=== PATIENT | male | born 1965 | race Caucasian/White ===

== ENCOUNTER 2016-08-24 08:09 | Inpatient (IN) | payer MEDICARE, OTHER ==
--- NOTE | ~2016-08-24 | CO ---
Unit #: [id number] #: [id number] Patient: SOHAIL LUBIN [id number] [facility] [address] [facility]. [place], [place] [address] [id number] I MR#: [id number] NAME: SOHAIL LUBIN ROOM: 231 Age: 50 Sex: M Admission Date: 08/24/2016 : 1965 Attending Physician: Axel James M.D. Primary Care Physician: No Primary Care Physician CONSULTATION REPORT CHIEF COMPLAINT Left perirenal abscess, left flank pain. HISTORY OF PRESENT ILLNESS The patient is a 50-year-old male, who presented to the emergency room with an approximately one-month history of left flank pain, which has become substantially worse over the last three to four days. He had subjective fevers at home. He was afebrile on presentation, but it spiked to 102.6 here at [facility]. He has had nausea and vomiting. He denies gross hematuria or dysuria. He underwent a CT scan of the abdomen and pelvis which shows a 7 x 7 x 7 cm left lower pole lesion which is predominantly perirenal which is low density but with enhancing septations. Differential diagnosis includes most likely abscess versus neoplasm. PAST MEDICAL HISTORY 1. Hepatitis C. 2. Hypertension. 3. Hyperlipidemia. 4. Diabetes. 5. Anxiety. 6. Depression. 7. Gastroparesis. 8. Atrial fibrillation. PAST SURGICAL HISTORY 1. Hernia repair. 2. Left wrist surgery. 3. Bilateral eye surgery. 4. Upper endoscopy which shows esophageal varices. MEDICATIONS Documented in the chart. ALLERGIES Documented in the chart. SOCIAL HISTORY Prior history of prescription drug use difficulties. Denies history of tobacco or alcohol use. REVIEW OF SYSTEMS Positive for fever. Positive for left flank pain. Positive for nausea. Positive for vomiting. Unit #: [id number] #: [id number] Patient: SOHAIL LUBIN FAMILY HISTORY Noncontributory. PHYSICAL EXAMINATION VITAL SIGNS: T-max 102.6, T-current 98.8, blood pressure 149/63, pulse 107. GENERAL: He is a somewhat unkept white male in no acute distress. HEENT: Normocephalic and atraumatic. Extraocular movements are intact. NECK: Supple. No lymphadenopathy. CARDIOVASCULAR: Sinus tachycardia. Regular rhythm. ABDOMEN: Soft, nondistended but there is significant left CVA tenderness. EXTREMITIES: No clubbing, cyanosis, or edema. DIAGNOSTIC STUDIES LABORATORY: Creatinine 0.7. White blood cell count 11,000, platelet count 170,000. Urinalysis: Leukocyte esterase negative, nitrite negative, greater than 1000 glucose, 2-5 red blood cells, 5-10 white blood cells. Also significant on his labs, his glucose is 327. IMAGING: CT scan of the abdomen and pelvis without and with IV contrast reviewed personally as above. ASSESSMENT AND PLAN Left renal mass clinically consistent with a left perirenal abscess. We will check STAT coagulation studies. If he is coagulopathic, this will need to be corrected. He will need a drain placed by interventional radiology. We will continue IV antibiotics and follow his cultures. There is an unlikely possibility that this could be a neoplasm, but given his clinical presentation of an abscess even in this situation it needs to be drained due to the acute clinical situation. I discussed this and the risks, benefits, and alternatives with the patient. We will proceed today. Dictated by... Shorty Young M.D. COURTNEY/chari TD: 08/25/2016 09:13 JOB #: [id number] CONSULTATION REPORT Page 1 of 1 X Shorty Young MD X CONSULTATION REPORT
--- NOTE | ~2016-08-24 | DS ---
Unit #: [id number] #: [id number] Patient: SEAN LUBIN [id number] [address] [address] [id number] I MR#: [id number] NAME: SEAN LUBIN ROOM: 558 Age: 50 Sex: M Admission Date: 08/24/2016 : 1965 Discharge Date: 09/01/2016 Attending Physician: Axel James M.D. Primary Care Physician: No Primary Care Physician DISCHARGE SUMMARY NOTE: The patient has had a lengthy stay during this hospitalization. CONSULTATIONS DONE DURING HOSPITALIZATION 1. Dr. Shorty Young from urology service. 2. Dr. Shellie Colindres from endocrinology service. 3. Dr. Villalba from infectious disease service. 4. Admitting physician - Dr. Abhinav James. 5. Discharging physician - Dr. Laura Ingram. DIAGNOSTIC STUDIES LAB WORKUP ON DISCHARGE: Glucose 153. Blood cultures from 08/25/2016 - No growth. BMP on discharge shows sodium 135, potassium 3.6, chloride 101, BUN 7, creatinine 0.4, calcium 7.8. CBC shows WBC 4.9, hemoglobin 10.8, hematocrit 33.5 and platelet count of 226. Magnesium 1.7. Cult from the abscess was positive for Staphylococcus aureus, MSSA. C. diff. in the stool was negative. lactic acid 1.3. Urine culture was no growth on 08/26/16. Hemoglobin A1C 11.7. Lactic acid on admission was 2. PROCEDURES PERFORMED IR drainage of the left renal abscess and, later on, drain exchange. DISCHARGE DIAGNOSES 1. Left renal abscess status post interventional radiology drainage/drain exchange. 2. Culture positive for methicillin-sensitive Staphylococcus aureus. 3. Diabetes mellitus type 2, uncontrolled, with hemoglobin A1C of 11. 4. Hypertension. 5. Hyperlipidemia. 6. Anemia. 7. Ejection fraction of 55% to 60% with [id number] mitral regurgitation, mild tricuspid regurgitation, no evidence of any pericardial effusion. 8. Hypocalcemia. 9. Diabetic gastroparesis. 10. History of hepatitis C. 11. History of substance abuse in the past. 12. History of cerebrovascular accident in the past. DISCHARGE MEDICATIONS 1. IV nafcillin q.24 hours until 09/25/16. Please note PICC line has been placed. 2. NovoLog 5 units subcu t.i.d. with meals. 3. Levemir 15 units in the morning and 10 units in the evening. 4. Tylenol 650 q.4 p.r.n. Unit #: [id number] #: [id number] Patient: SEAN LUBIN 5. Lortab 10/325 mg 1 tablet q.8 p.r.n. HOSPITAL COURSE Mr. Sean Lubin a 50-year-old male who was admitted by my colleague, Dr. James with the complaint of flank pain and fever. Also complained of weight loss, about 10 pounds. Initial evaluation in the ER showed left-sided kidney mass extending into muscle. Dr. Young from urology service was consulted. Left renal mass was diagnosed with left perirenal abscess. Interventional radiology was consulted, and the patient's abscess was drained, and drain was placed for continuous drainage. Infectious disease was consulted, and the patient's antibiotic is being decided as per their recommendation. The patient is on IV nafcillin, which needs to be continued until 09/25/2016. The patient is afebrile and has no leukocytosis. Seems to be stable. The patient will need pain medications for pain management. As per Dr. Young, highly unlikely possibility of neoplasm. The patient's drain was also adjusted recently. Repeat CT scan of the abdomen was done, and that showed drain remains in place posterior to the left kidney. Previously identified air and fluid collection posterior to the kidney has now resolved. There is residual phlegmonous material immediately posterior to the left kidney, but no residual fluid collection is seen. The patient had hyperglycemia. Has history of diabetes mellitus, which is not very well controlled. The patient's hemoglobin A1C is 11. Dr. Colindres was consulted. The patient has been placed on Levemir. Diet counselling has been done. EXAMINATION ON DISCHARGE VITAL SIGNS: Blood pressure is 123/69, respiratory rate 18, pulse 74, temperature 97.4, oxygen saturation 99%. HEAD: Normocephalic. RESPIRATORY: Chest has fair air entry. CVS: Regular rhythm. ABDOMEN: Tenderness present, especially on the left side. DISCHARGE INSTRUCTIONS 1. Patient is being discharged home on IV antibiotics. A PICC line has been placed. 2. Follow up with primary care provider in (1) . 3. The patient needs to follow up with Dr. Young/Dr. Sexton in 2-[address] Sexton, keep the drain for now. Will remove when completed course of antibiotic and output is scant. This has been discussed with the patient. On discharge the patient's drain fluid is 30 mL to 50 mL in the bag. 4. The patient has been advised to return to the ER in the event of high fever, nausea, vomiting or worsening of pain. Dictated by... Josh Grimes/archei TD: 09/02/2016 15:51 JOB #: [id number] Unit #: [id number] #: [id number] Patient: SEAN LUBIN DISCHARGE SUMMARY Page 1 of 1 X Laura Ingram MD X DISCHARGE SUMMARY
--- NOTE | ~2016-08-24 | CT134 ---
[facility] A Service of [facility] & [facility] RADIOLOGY TEXT RESULTS PATIENT: SOHAIL LUBIN LOCATION: B 558-01 : [birth year] UNIT #: [id number] AGE: [address]: Axel James MD SEX: M ORDER DR: [id number] [facility] [address] [facility] [address] [address]. [place], [place] [address] [id number] I MR#: [id number] Acc #: [id number] NAME: SOHAIL LUBIN : 1965 SEX: M STUDY DATE/TIME: 08/25/2016 13:42 UNIT: C5B ROOM: [facility] STUDY DESCRIPTION: CT Guide Attending Physician: Axel James M.D. Ordering Physician: Shorty Young M.D. Primary Care Physician: No Primary Care Physician MEDICAL IMAGING REPORT This report is preliminary unless electronic signature is present EXAM CT guided left perinephric abscess drain placement. HISTORY Mr. Lubin had a CT scan performed August 24, 2016, which showed a complex perinephric collection on the left favored to represent a perinephric abscess. Drainage has been requested. PROCEDURE The risks, benefits, and alternatives to the procedure were explained to the patient and signed, informed consent obtained. He was placed in the right lateral decubitus position. Preliminary CT scan was performed through the region of interest. An appropriate site overlying the inferior aspect of the collection was selected. Overlying skin was marked. Patient was prepped and draped in usual sterile fashion. Time-out was performed as per protocol. Skin and kidneys tissues were anesthetized with buffered lidocaine. Infusion needle was left in place. Repeat CT scan confirmed appropriate trajectory of the needle and I subsequently then advanced a Authentix catheter into the fluid and aspiration of frankly purulent material. An Amplatz wire was advanced through the catheter tract and serially dilated and a 10-German pigtail drainage catheter was placed within the collection within immediate drainage of purulent material. I removed 60 mL of frankly purulent material, which will be sent to lab for Gram stain, culture and sensitivity. The catheter was then placed to gravity drainage and was secured using two 2-0 silk sutures. Patient tolerated the procedure well and there were no immediate complications. He did receive moderate sedation consisting of 3.5 mg of Versed and 150 mcg of fentanyl. I supervised the IVR nurse and monitored the patient's vital signs for a total 15 minutes of face to face time. This CT exam was performed with one or more of the following radiation dose reduction techniques: automatic exposure control, adjustment of mA and/or kV according to patient size, and iterative reconstruction. [facility] A Service of [facility] RADIOLOGY TEXT RESULTS PATIENT: SOHAIL LUBIN LOCATION: [facility] 558-01 : 61 UNIT #: [id number] AGE: [address]: Axel James MD SEX: M ORDER DR: DUNCAN Technically successful CT guided left perinephric abscess drain placement. CT was used during the procedure and permanent images were saved. I would suggest a followup CT scan in 7 days to reassess the perinephric collection. Dictated by... Candace Minor M.D. THIS IS AN ELECTRONICALLY VERIFIED REPORT Candace Minor M.D. at 08/26/2016 5:50 PM AFF/pc TD: 08/26/2016 11:06 JOB #: [id number] MEDICAL IMAGING REPORT Page 1 of 1 COPY
--- NOTE | ~2016-08-24 | HP ---
Unit #: [id number] #: [id number] Patient: SOHAIL LUBIN [id number] [address] [address] [id number] I MR#: [id number] NAME: SOHAIL LUBIN ROOM: 231 Age: 50 Sex: M Admission Date: 08/24/2016 : 1965 Attending Physician: Axel James M.D. Primary Care Physician: No Primary Care Physician HISTORY AND PHYSICAL ADMISSION DIAGNOSES 1. Kidney mass. 2. Fever. 3. Weight loss. 4. History of hypertension. 5. History of dyslipidemia. 6. Diabetes. 7. History of diabetic gastroparesis. 8. History of hep C. 9. History of substance abuse in the past. 10. History of anxiety and depression. 11. History of seizure disorder. 12. History of atrial fibrillation in the past. HISTORY The patient is a 50-year-old gentleman, patient of Dr. Ingram who comes in with the complaints of the flank pain and fever. He also tells me that he lost around 10 pounds in the last three months. According to him, the pain started around three to four days ago and got progressively worse. Initial evaluation in the ER showed left-sided kidney mass extending into muscles. The rest of the workup is significant for potassium of 3.1 and glucose of 327. He has a white count of 11,300. UA shows some protein and glucose. Otherwise the patient denies any acute chest pain. Denies any shortness of air, dyspnea, cough, headache, dizziness, lightheadedness, syncope, or presyncope. Denies any nausea, vomiting, diarrhea, or abdominal pain. REVIEW OF SYSTEM Twelve point review of systems on this patient is basically negative, except as above. PAST MEDICAL HISTORY As above. Significant for questionable AFib, questionable seizure disorder, history of pancytopenia, hypertension, dyslipidemia, CVA, diabetic gastroparesis, hep c, and substance abuse, along with anxiety and depression. PAST SURGICAL HISTORY Significant for hernia repair, left wrist surgery and eye surgery, along with the EGD. SOCIAL HISTORY He denies any tobacco, alcohol or illicit drugs. Unit #: [id number] #: [id number] Patient: SOHAIL LUBIN FAMILY HISTORY Unremarkable. ALLERGIES No known drug allergies. CURRENT MEDICATIONS Currently he takes not medications. PHYSICAL EXAMINATION GENERAL APPEARANCE: 50-year-old gentleman in no acute distress. VITAL SIGNS: BP 130/75, heart rate 90, respirations 18, temperature 98.1, and satting 97%. HEENT: Head is atraumatic. Pupils equal, round, and reactive to light and accommodation. Extraocular muscles intact. Oropharynx clear. NECK: Supple. No mass. No JVD. No bruits. CHEST: Diminished at the bases, but generally clear. CARDIOVASCULAR: S1 and S2. No murmurs. ABDOMEN: Soft, nontender, and nondistended. LOWER EXTREMITIES: No cyanosis, clubbing, or edema. NEUROLOGIC: Patient is grossly intact. No focal deficits. Alert and oriented x3. MUSCULOSKELETAL: Significant for left CVA tenderness. DIAGNOSTIC STUDIES LABORATORY STUDIES: As above. ASSESSMENT AND PLAN 1. Renal mass suspicious for malignancy with a history of weight loss; however, patient also was febrile. Will have the urology evaluation. Continue IV Rocephin empirically. 2. History of diabetes, which is uncontrolled, sliding scale. Check hemoglobin A1c. Consider baseline insulin. Patient has also been known for noncompliance. 3. History of hypertension. 4. History of dyslipidemia. 5. Questionable history of AFib. 6. Questionable history of seizure disorder. 7. GI and DVT prophylaxis: Will start on PPI and Lovenox. 8. Leukocytosis as above. Continue empiric Rocephin. Followup on cultures. Dictated by Axel James M.D. OC/kevin TD: 08/25/2016 08:23 JOB #: [id number] Unit #: [id number] #: [id number] Patient: SOHAIL LUBIN HISTORY AND PHYSICAL Page 1 of 1 X Axel James MD HISTORY AND PHYSICAL
--- NOTE | ~2016-08-24 | CT4 ---
[facility] A Service of [facility] & [facility] RADIOLOGY TEXT RESULTS PATIENT: SOHAIL LUBIN LOCATION: C2A 231-01 : 61 UNIT #: [id number] AGE: [address]: Axel James MD SEX: M ORDER DR: [id number] [facility] [address]. [place], [place] [address] [id number] I MR#: [id number] Acc #: [id number] NAME: SOHAIL LBUIN : 1965 SEX: M STUDY DATE/TIME: 08/24/2016 09:47 UNIT: C2A ROOM: [facility] STUDY DESCRIPTION: CT Abd and Pelv Wo Cont Attending Physician: Axel James M.D. Ordering Physician: Hong Hedrick M.D. MEDICAL IMAGING REPORT This report is preliminary unless electronic signature is present EXAM CT abdomen and pelvis without contrast 08/24/2016 0947 hours. HISTORY 50-year-old man with history of hypertension, cirrhosis, hepatitis C, complaining of 3-day history of left flank pain radiating to the left testicle with burning on urination COMPARISON CT abdomen 10/26/2015. TECHNIQUE Helical noncontrasted images were obtained from the lung bases through the pubic symphysis without oral or intravenous contrast. Sagittal and coronal reconstructions were performed. Total exam DLP is 761 mGy-cm. This CT exam was performed with one or more of the following radiation dose reduction techniques: Automatic exposure control, adjustment of mA and/or kV according to patient size, and iterative reconstruction. FINDINGS Images through the lung bases demonstrate mild emphysematous change. There is no acute pulmonary density or pleural effusion. There are small vessels around the distal esophagus which could represent collateral vessels/varices. Images through the abdomen demonstrate cirrhotic morphology to the liver with stable splenomegaly and trace ascites adjacent to the right lobe of the liver. The gallbladder is distended with no evidence of stones. The pancreas and bile ducts are normal. The adrenal glands are normal. The right kidney is normal with no mass, stone or dilatation. There is no right ureteral calculus. The left kidney has an abnormal appearance with abnormal heterogeneous STS. [facility] A Service of [facility] & [facility] RADIOLOGY TEXT RESULTS PATIENT: SOHAIL LUBIN LOCATION: C2A 231-01 : 61 UNIT #: [id number] AGE: [address]: Axel James MD SEX: M ORDER DR: soft tissue density abutting the posterior margin of the kidney filling the perinephric space and protruding to and being contiguous with the left psoas muscle. This continues down to the level of L5. It is difficult to separate this soft tissue density from the kidney and the psoas muscle. Density measures up to 7.3 cm cephalocaudad by 7.2 cm anterior to posterior and up to 8.7 cm transversely. Findings are nonspecific on this noncontrasted study. This could represent a large renal cell carcinoma although no abnormality is seen in this area on the 10/26/2015 CT scan which was performed with contrast. Alternatively this could represent a hematoma. Hemorrhage at the site of a tumor is possible as well. The left kidney does not appear dilated. It is difficult to trace the left ureter through the area of this masslike density but no ureteral calculus is seen. The bladder is normal. Stomach and small bowel appear normal. There is no colonic distension or colonic wall thickening. CT pelvis demonstrates a normal appearance to the seminal vesicles, prostate and bladder. IMPRESSION 1. There is no renal or ureteral calculus. 2. There is a large masslike density contiguous with the lower pole left kidney extending to and contiguous with the left psoas muscle measuring up to 7.3 x 7.2 x 8.7 cm. This could represent a large renal cell carcinoma or hematoma or hemorrhage at a new renal cell carcinoma. The lower pole left kidney was normal in appearance on the 10/26/2015 CT abdomen with contrast. Consider further evaluation with multiphase renal mass protocol CT or MRI with contrast. 3. Cirrhotic morphology to the liver with splenomegaly and trace ascites adjacent to the liver. Collateral vessels are present. 4. The stomach, small bowel and colon appear normal. STAT * RESULT Dictated by... Gris Powell M.D. THIS IS AN ELECTRONICALLY VERIFIED REPORT Gris Powell M.D. at 08/25/2016 9:34 AM MARVEL/mika TD: 08/24/2016 10:35 JOB #: [id number] MEDICAL IMAGING REPORT Page 1 of 1 COPY
--- NOTE | ~2016-08-24 | XA259 ---
[facility] A Service of [facility] & [facility] RADIOLOGY TEXT RESULTS PATIENT: SOHAIL LUBIN LOCATION: [place] [address] : 61 UNIT #: [id number] AGE: [address]: Axel James MD SEX: M ORDER DR: [id number] [facility] [address] [place], [place] [address] [id number] I MR#: [id number] Acc #: [id number] NAME: SOHAIL LUBIN : 1965 SEX: M STUDY DATE/TIME: 08/25/2016 13:42 UNIT: [facility] ROOM: [facility] STUDY DESCRIPTION: GEOFF Chong Cath Karmen/Retro w/im Attending Physician: Axel James M.D. Ordering Physician: Shorty Young M.D. Primary Care Physician: No Primary Care Physician MEDICAL IMAGING REPORT This report is preliminary unless electronic signature is present EXAM CT guided left perinephric abscess drain placement. HISTORY Mr. Lubin had a CT scan performed August 24, 2016, which showed a complex perinephric collection on the left favored to represent a perinephric abscess. Drainage has been requested. FINDINGS Result text under order number [id number]. Please see this order for result text. Dictated by... Candace Minor M.D. THIS IS AN ELECTRONICALLY VERIFIED REPORT Candace Minor M.D. at 08/26/2016 5:51 PM AFF/pc TD: 08/26/2016 11:16 JOB #: [id number] MEDICAL IMAGING REPORT Page 1 of 1 COPY
--- NOTE | ~2016-08-24 | CR72 ---
[facility] A Service of [facility] & [facility] RADIOLOGY TEXT RESULTS PATIENT: SOHALI LUBIN LOCATION: [place] [address] : [birth year] UNIT #: [id number] AGE: [address]: Axel James MD SEX: M ORDER DR: [id number] [facility] [address] [place], [place] [address] [id number] MR#: [id number] Acc #: [id number] NAME: SOHAIL LUBIN : 1965 SEX: M STUDY DATE/TIME: 08/24/2016 09:31 UNIT: RAMIRO ROOM: STUDY DESCRIPTION: CR Chest Single View Portable Attending Physician: Hong Hedrick M.D. Ordering Physician: Hong Hedrick M.D. Primary Care Physician: No Primary Care Physician MEDICAL IMAGING REPORT This report is preliminary unless electronic signature is present EXAM Chest portable, 08/24/2016, 0931 hours. HISTORY 50-year-old man with 3-day history of left flank pain with cough and shortness of air, pain radiates to testicles. Burning on urination. History of diabetes, atrial fibrillation. COMPARISON 10/21/2015 FINDINGS Portable upright chest is rotated to the right. Allowing for this the cardiac, mediastinal and hilar contours are stable. Lung volumes are low. No acute pulmonary or pleural finding. No free air in the abdomen. IMPRESSION Film is limited by low lung volumes and rightward rotation of the patient. No acute cardiopulmonary findings. No free air seen in the abdomen. Dictated by... Gris Powell M.D. THIS IS AN ELECTRONICALLY VERIFIED REPORT Gris Powell M.D. at 08/24/2016 9:02 PM MARVEL/yudi TD: 08/24/2016 14:25 JOB #: [id number] MEDICAL IMAGING REPORT Page 1 of 1 COPY
--- NOTE | ~2016-08-24 | CT4 ---
[facility] A Service of [facility] & [facility] RADIOLOGY TEXT RESULTS PATIENT: SOHAIL LUBIN LOCATION: [facility] 558-01 : 61 UNIT #: [id number] AGE: [address]: Axel James MD SEX: M ORDER DR: [id number] [facility] [address] [address] [facility]. [place], [place] [address] [id number] I MR#: [id number] Acc #: [id number] NAME: SOHAIL LUBIN : 1965 SEX: M STUDY DATE/TIME: 08/31/2016 8:34 UNIT: C5B ROOM: [facility] STUDY DESCRIPTION: CT Abd and Pelv Wo Cont Attending Physician: Axel James M.D. Ordering Physician: Yariel Olivarez M.D. Primary Care Physician: No Primary Care Physician MEDICAL IMAGING REPORT This report is preliminary unless electronic signature is present EXAM CT of the abdomen and pelvis without contrast INDICATIONS Pararenal abscess on the left. Followup study TECHNIQUE CT of the abdomen and pelvis was performed without contrast. Coronal and sagittal reformatted images were obtained. Comparison with 08/27/[address] exam was performed with one or more of the following radiation dose reduction techniques: automatic exposure control, adjustment of mA and/or kV according to patient size, and iterative reconstruction. FINDINGS Lung bases are clear. Cirrhosis of the liver. Stable scant amount of ascites around the liver. The gallbladder is unremarkable. The spleen is unremarkable. There is a drain in place posterior to the left kidney. The fluid collection posterior to the left kidney has resolved. There is some residual phlegmonous material immediately posterior to the left kidney. The right kidney is unremarkable. The adrenal glands are unremarkable. The pancreas is unremarkable. Pelvis: Small amount of free fluid. The colon is unremarkable. The remainder of the pelvis is unremarkable. The bone windows are unremarkable. IMPRESSION 1. Drain remains in place posterior to the left kidney. Previously identified air and fluid collection posterior to the kidney has now resolved. There is residual phlegmonous material immediately posterior to the left kidney, but no residual fluid collection is [facility] A Service of [facility] & [facility] RADIOLOGY TEXT RESULTS PATIENT: SOHAIL LUBIN LOCATION: [facility] 558-01 : [birth year] UNIT #: [id number] AGE: [address]: Axel James MD SEX: M ORDER DR: seen. 2. The remainder of the study is unchanged from previous. Please see full report. Dictated by... James Fox M.D. THIS IS AN ELECTRONICALLY VERIFIED REPORT James Fox M.D. at 09/01/2016 5:10 PM SARITA/prachi TD: 08/31/2016 11:52 JOB #: [id number] MEDICAL IMAGING REPORT Page 1 of 1 COPY
--- NOTE | ~2016-08-24 | CO ---
Unit #: [id number] #: [id number] Patient: SOHAIL LUBIN [id number] [address] [place], [place] [address] [id number] I MR#: [id number] NAME: SOHAIL LUBIN ROOM: 558 Age: 50 Sex: M Admission Date: 08/24/2016 : 1965 Attending Physician: Axel James M.D. Primary Care Physician: Primary Care Physician No Consultation Date: 08/26/2016 CONSULTATION REPORT REASON FOR CONSULTATION Uncontrolled diabetes mellitus. HISTORY OF PRESENT ILLNESS This is a 50-year-old gentleman with history of multiple medical problems including hepatitis C, polysubstance abuse, hypertension, hyperlipidemia, type 2 diabetes mellitus, who has been admitted with a fever and the weight loss 10 pounds and left flank sided pain on CT scan. He was found to have a left-sided kidney mass suggestive of perianal abscess. He has been started on IV antibiotics, blood sugars on admission were very high. I have been asked to see the patient for further management. REVIEW OF SYSTEMS A 12-point review of system is completed, is remarkable for the weight loss, fever, left flank pain, and have some nausea, high blood sugars. Rest of the review of system is unremarkable. PAST MEDICAL HISTORY See HPI. PAST SURGICAL HISTORY Hernia repair, left wrist surgery, eye surgery. SOCIAL HISTORY Declines any tobacco, alcohol, or illicit drugs. FAMILY HISTORY Noncontributory. ALLERGIES None. MEDICATIONS As per the patient, he was taking his Levemir but does not know the dose and metformin. Current medication includes Levemir 10 units daily at the bedtime. He is on vancomycin, Zofran, and Protonix. PHYSICAL EXAMINATION GENERAL: He is awake, alert, oriented to time, place, and person, in no acute respiratory distress. VITAL SIGNS: Temperature 99.6, pulse is 91, respirations 16, and blood pressure is 116/66. HEENT: EOMI. Pupils equally reactive to light. NECK: Supple. No thyromegaly noted. Unit #: [id number] #: [id number] Patient: SOHAIL LUBIN CHEST: Good air entry. CVS: Regular rhythm. S1, S2. No murmurs. ABDOMEN: Soft and nontender. Bowel sounds positive. EXTREMITIES: No edema noted. DIAGNOSTIC STUDIES LABORATORY RESULTS: Reviewed. Glucose 247, sodium 130, chloride 98, potassium 4.3, magnesium is 1.7. A1c is 11.7. TSH, not available. ASSESSMENT 1. Type 2 diabetes mellitus, poorly controlled. 2. History of polysubstance abuse. 3. Perinephric abscess. 4. History of hepatitis C. PLAN We will continue the consistent carb diet. Increase the Levemir to 25 units at bedtime. Add NovoLog 5 units with each meal. Continue supplemental sliding scale with meals and at bedtime. Accu-Cheks a.c. and h.s. We will continue to follow the patient for further management. Dictated by... Josh Guerrero/antonio TD: 08/27/2016 01:37 JOB #: [id number] CONSULTATION REPORT Page 1 of 1 X Shellie Colindres MD X CONSULTATION REPORT
--- NOTE | ~2016-08-24 | CT2 ---
[facility] A Service of [facility] & [facility] RADIOLOGY TEXT RESULTS PATIENT: SOHAIL LUBIN LOCATION: [facility] 558-01 : 61 UNIT #: [id number] AGE: [address]: Axel James MD SEX: M ORDER DR: [id number] [facility] [address] [place], [place] [address] [id number] I MR#: [id number] Acc #: [id number] NAME: SOHAIL LUBIN : 1965 SEX: M STUDY DATE/TIME: 08/27/2016 20:50 UNIT: C5B ROOM: [facility] STUDY DESCRIPTION: CT Abd and Pelv W Cont Attending Physician: Axel James M.D. Ordering Physician: Axel James M.D. Primary Care Physician: Primary Care Physician No MEDICAL IMAGING REPORT This report is preliminary unless electronic signature is present EXAM CT abdomen and pelvis with contrast HISTORY 50-year-old male with left perinephric abscess drained 08/24/2016 and drain inserted 08/25/2016, complains of left flank pain x6 days. COMPARISON CT abdomen and pelvis, 08/24/2016 TECHNIQUE Axial images performed through the abdomen and pelvis following IV contrast. Multiplanar reconstructions. This CT exam was performed with one or more of the following radiation dose reduction techniques: automatic exposure control, adjustment of mA and/or kV according to patient size, and iterative reconstruction. FINDINGS ABDOMEN: Lung bases unremarkable. Cirrhotic morphology of the liver with a moderate amount of ascites and splenomegaly. Mild gallbladder distension. Pancreas and adrenal glands unremarkable. The right kidney unremarkable. Adjacent to the left kidney there is induration and enhancement of the tissues in the inferior posterior aspect of the left perinephric space, compatible with residual inflammation and phlegmon. A distinct drainable fluid collection is not identified though there remains a small amount of fluid and gas at the site of the patient's percutaneous drain along the left posterior flank. The area of induration and enhancement measures approximately 3.4 x 5.0 cm transverse dimensions and about 5.4 cm cephalocaudal dimension. Mild induration of the overlying flank soft tissues. Visualized GI tract unremarkable. Aorta and IVC appear normal. The patient does demonstrate a retroaortic left renal vein. [facility]. [facility] A Service of [facility] RADIOLOGY TEXT RESULTS PATIENT: SOHAIL LUBIN LOCATION: C5B 558-01 : [birth year] UNIT #: [id number] AGE: [address]: Axel James MD SEX: M ORDER DR: PELVIS: The bladder is decompressed. Osseous structures, soft tissues unremarkable except for mild generalized reticulation edema particularly over the left flank region could be related to third spacing of fluid. IMPRESSION ABOVE. Dictated by... Natalee Fox M.D. THIS IS AN ELECTRONICALLY VERIFIED REPORT Natalee Fox M.D. at 08/29/2016 5:34 PM Maritza TD: 08/28/2016 10:34 JOB #: [id number] MEDICAL IMAGING REPORT Page 1 of 1 COPY
--- NOTE | ~2016-08-24 | CT2 ---
[facility] A Service of [facility] & [facility] RADIOLOGY TEXT RESULTS PATIENT: SOHAIL LUBIN LOCATION: [facility] 558-01 : [birth year] UNIT #: [id number] AGE: [address]: Axel James MD SEX: M ORDER DR: [id number] [facility] [address] [facility]. [place], [place] [address] [id number] I MR#: [id number] Acc #: [id number] NAME: SOHAIL LUBIN : 1965 SEX: M STUDY DATE/TIME: 08/24/2016 18:48 UNIT: C2A ROOM: 231 STUDY DESCRIPTION: CT Abd and Pelv W Cont Attending Physician: Axel James M.D. Ordering Physician: Shorty Young M.D. Primary Care Physician: Primary Care Physician No MEDICAL IMAGING REPORT This report is preliminary unless electronic signature is present EXAM CT abdomen and pelvis with IV contrast HISTORY Left flank pain and groin pain and dysuria for [address] abdomen and pelvis was performed with IV contrast including multiphase post IV contrast scans. Exam is compared to noncontrast CT earlier today. This CT examination was performed with one or more of the following radiation dose reduction techniques: automatic exposure control, adjustment of mA and/or kV according to patient size, and iterative reconstruction. CT ABDOMEN: There is a large lobulated, multiseptated fluid density mass posterior to the mid and lower left kidney, measuring 6.8 cm x 8.0 cm in AP and transverse dimensions and 7.7 cm in craniocaudal dimension. This is predominantly perirenal, but includes a small intrarenal component, extending into the posterior lower pole left kidney. There is adjacent moderate left retroperitoneal stranding, and there is mild generalized enlargement of the left psoas and quadratus lumborum muscles. This mass causes anterior displacement of the left kidney by approximately 3 cm. Considerations include abscess, or cystic neoplasm. There are patchy hypoenhancing regions in the medial upper pole right kidney measuring 2.3 cm and in the medial mid to upper right kidney measuring 1.9 cm. These are concerning for multifocal pyelonephritis. Broad considerations also include infiltrative neoplasm. Correlation to urinalysis and white blood cell count is recommended. Morphologic changes of cirrhosis. Small amount of perihepatic ascites. Evidence of portal venous hypertension with mild upper abdominal venous collaterals and moderate splenomegaly. The pancreas, and adrenal glands [facility] A Service of [facility] RADIOLOGY TEXT RESULTS PATIENT: SOHAIL LUBIN LOCATION: [facility] 558- : [birth year] UNIT #: [id number] AGE: [address]: Axel James MD SEX: M ORDER DR: are unremarkable. Normal caliber abdominal aorta. Subcentimeter cyst in the lateral mid-left kidney. Small umbilical hernia containing fat. CT PELVIS: Small amount of free fluid in the pelvis. No bowel dilatation. No loculated fluid collection. Urinary bladder is normal. I called the findings in the abdomen to the patient's nurse, Moriah, at the time of this dictation. IMPRESSION 1. Large lobulated multiseptated mass posterior to the mid and lower left kidney is predominantly perirenal and contains a small intrarenal component. The multiple septations enhance with contrast. This measures 6.8 cm x 8 cm x 7.7 cm. Considerations primarily include perirenal abscess with an intrarenal abscess component versus cystic neoplasm which is felt be less likely. I called these findings to the patient's nurse at the time of this dictation. There is adjacent contiguous thickening of the left psoas muscle and left quadratus lumborum muscle and moderate left mid to inferior perinephric stranding. Correlation to urinalysis and white blood cell count is recommended. There are additional patchy hypoenhancing regions in the upper pole of the right kidney measuring up to 2.2 cm. These could be secondary to multifocal pyelonephritis. Infiltrative neoplasm is also in the differential. 2. No ascites in the abdomen and no additional mass or fluid collection. Minimal free fluid in the pelvis. 3. Cirrhosis with splenomegaly. Dictated by... Suhail Nelson M.D. THIS IS AN ELECTRONICALLY VERIFIED REPORT Suhail Nelson M.D. at 08/25/2016 11:17 PM DFL/antonia TD: 08/25/2016 06:39 JOB #: [id number] MEDICAL IMAGING REPORT Page 1 of 1 COPY
--- NOTE | ~2016-08-24 | XA3 ---
[facility] A Service of [facility] & [facility] RADIOLOGY TEXT RESULTS PATIENT: SOHAIL LUBIN LOCATION: [facility] 558-01 : 61 UNIT #: [id number] AGE: [address]: Axel James MD SEX: M ORDER DR: [id number] [facility] [address]. [place], [place] [address] [id number] I MR#: [id number] Acc #: [id number] NAME: SOHAIL LUBIN : 1965 SEX: M STUDY DATE/TIME: 08/29/2016 13:08 UNIT: C5B ROOM: [facility] STUDY DESCRIPTION: XA Abscess Drain Injection Attending Physician: Axel James M.D. Ordering Physician: Shorty Young M.D. Primary Care Physician: Primary Care Physician No MEDICAL IMAGING REPORT This report is preliminary unless electronic signature is present EXAM Abscess drain exchange under fluoroscopic guidance INDICATION Left perirenal abscess. The drainage catheter was not draining very well and there was residual abscess seen on recent CT. The fluoro time 0.9 minutes. Reference air kerma is 53 mGy. Medications administered were 3 mg of Versed IV and 150 mcg of Fentanyl IV. Approximate 45 minutes of sedation time was monitored by appropriately credentialed radiology nursing staff with 10 minutes of [id number] supervision provided by Dr. Fox. The risks, benefits and alternative to the procedure were discussed with the patient. Informed consent was obtained. In the procedure room a time-out was performed confirming correct patient and procedure. All elements of maximum sterile-barrier technique utilized according to guidelines appropriate for the procedure. TECHNIQUE/FINDINGS The skin overlying the left kidney was prepped and draped in the usual sterile fashion. The existing drain was also prepped and draped in the usual sterile fashion using 2% Chlorhexidine. Next, a small amount of contrast was ejected into the drain delineating the abscess cavity. The existing drain was removed and next, a new 12-Persian pigtail drain was advanced over the guide wire and positioned within the cavity. There was return of fluid. It was hooked to gravity bag drainage and sutured into place and a sterile dressing was applied. The patient tolerated the procedure well without immediate complications. IMPRESSION Technically successful fluoroscopic-guided left pararenal abscess drain [facility]. [facility] A Service of [facility] RADIOLOGY TEXT RESULTS PATIENT: SOHAIL LUBIN LOCATION: [place] [address] : [birth year] UNIT #: [id number] AGE: [address]: Axel James MD SEX: M ORDER DR: exchange. Dictated by... James Fox M.D. THIS IS AN ELECTRONICALLY VERIFIED REPORT James Fox M.D. at 08/31/2016 7:14 AM Watson TD: 08/30/2016 09:08 JOB #: [id number] MEDICAL IMAGING REPORT Page 1 of 1 COPY
--- NOTE | ~2016-08-24 | EKG ---
PATIENT: SOHAIL LUBIN UNIT #: [id number] Ventricular Rate: 95 BPM Atrial Rate: 95 BPM P-R Interval: 132 ms QRS Duration: 84 ms Q-T Interval: 382 ms QTC Calculation(Bezet): 480 ms P Coal[place]: 22 degrees Calculated R Coalgood: 30 degrees Calculated T Coalgood: 4 degrees Diagnosis Line: Normal sinus rhythm Diagnosis Line: Prolonged QT Diagnosis Line: Abnormal ECG Diagnosis Line: When compared with ECG of 21-OCT-2015 11:27, Diagnosis Line: No significant change was found Diagnosis Line: Confirmed by KAILYN KIRK MD ([id number]) on Diagnosis Line: 08/26/2016 7:27:34 AM INTERPRETING MD: REAGAN MONET
--- NOTE | ~2016-08-24 | XA166 ---
[facility] A Service of [facility] & [facility] RADIOLOGY TEXT RESULTS PATIENT: SOHAIL LUBIN LOCATION: C5B 558-01 : 61 UNIT #: [id number] AGE: [address]: Axel James MD SEX: M ORDER DR: [id number] [facility] [address] [facility]. [place], [place] [address] [id number] I MR#: [id number] Acc #: [id number] NAME: SOHAIL LUBIN : 1965 SEX: M STUDY DATE/TIME: 08/31/2016 9:42 UNIT: C5B ROOM: [facility] STUDY DESCRIPTION: XA PICC Line Placement WO Port Attending Physician: Axel James M.D. Ordering Physician: Ramiro Villalba M.D. Primary Care Physician: Gege Primary Care Physician MEDICAL IMAGING REPORT This report is preliminary unless electronic signature is present EXAM PICC placement HISTORY Venous antibiotics needed for home therapy. PRE-PROCEDURE The procedure was explained to the patient and/or patient security systems sales representative including risks, benefits, potential complications and potential for alternative forms of treatment. Informed consent was obtained, and prior to initiating the procedure a formal timeout procedure was performed. PROCEDURE Using full standard sterile barrier technique, including caps, gowns, gloves, masks, as well as sterile skin preparation and standard sterile draping, the right arm was prepped and draped in the usual fashion, and real-time sterile ultrasound guidance was used to localize an arm vein and to confirm vessel patency. A hard copy ultrasound image was recorded. After local anesthesia with 1% Xylocaine, the vein was punctured using real-time sterile ultrasound guidance, and an 0.018 guidewire was advanced into the superior vena cava, using fluoroscopic guidance. A 4-Nigerien single-lumen PICC was then measured to 38 cm and deployed with the tip positioned in the lower superior vena cava. The position of the line was documented with a radiographic image. The line was secured in place with an adhesive dressing and an antibiotic patch was applied. Total fluoro time was 1.3 minutes. Total dose 9 mGy. IMPRESSION Successful placement of a 4-Nigerien single-lumen PowerPICC via the right arm under ultrasound and fluoroscopic guidance. The tip of the PICC is in good position in the superior vena cava. [facility] A Service of [facility] RADIOLOGY TEXT RESULTS PATIENT: SOHAIL LUBIN LOCATION: [place] [address] : [birth year] UNIT #: [id number] AGE: [address]: Axel James MD SEX: M ORDER DR: Dictated by... Satish Crawford M.D. THIS IS AN ELECTRONICALLY VERIFIED REPORT Satish Crawford M.D. at 09/01/2016 3:40 PM KWAME/og TD: 08/31/2016 15:55 JOB #: [id number] MEDICAL IMAGING REPORT Page 1 of 1 COPY
[~2016-08-24 08:09] MED LIST: ALTACE PO; ALTACE5 M1 PO; ASPIRIN; ASPIRIN PO; ASPIRIN81 M1 PO; ASPIRIN81 M2 PO; B/P MED; BACLOFEN10 MG PO; BAYER ASPIRIN325 M1 PO; BENTYL20 MG PO; CALAN; CARDIZEM CD PO; CARDIZEM CD120 MG PO; CARDIZEM SR PO; CARTIA XT PO; CIPRO PO; CIPRO250 MG PO; CLONAZEPAM0.5 MG PO; COUMADIN2.5 MG PO; COUMADIN5 MG PO; DIABETA5 M1 PO; DIAZEPAM PO; DIAZEPAM5 MG/M2 PO; DILTIAZEM 24HR120 M1 PO; FAMOTIDINE PO; FLAGYL PO; FLEXERIL PO; FLEXERIL10 MG PO; FLOMAX0.4 M1; FLOMAX0.4 M1 PO; FLOMAX0.4 MG PO; GABAPENTIN600 MG PO; GLUCOPHAGE XR500 MG; GLUCOPHAGE500 M1 PO; GLUCOPHAGE500 MG PO; GLUCOPHAGE850 MG; GLUCOPHAGE850 MG PO; GLYNASE PO; HALOPERIDOL1 MG PO; IBUPROFEN PO; IMDUR; K-DUR20 ME1 PO; KCL; KCL PO; KEFLEX PO; KEFLEX500 MG PO; KETOPROFEN PO; LAMICTAL100 MG PO; LANTUS100 U/ML SUBQ; LEVAQUIN PO; LEVEMIR100 UNITS/ SUBQ; LISINOPRIL5 MG PO; LOMOTIL TABLET1 TAB PO; LOPRESSOR PO; LOPRESSOR100 MG PO; LORTAB 10-5001 EACH PO; LORTAB 10/500 T1 TAB; LORTAB 10/500 T1 TAB PO; LORTAB 101 TAB 10/5 PO; LORTAB 7.5-5001 TAB PO; LOTENSIN10 MG PO; LOTENSIN20 MG PO; MEDROL PO; METFORMIN PO; METOPROLOL TAR100 MG PO; METOPROLOL TAR25 MG PO; MICRONASE5 M2 PO; MORPHINE SULFAT15 M3 PO; NAPROSYN375 MG PO; NEXIUM PO; NEXIUM20 MG PO; NO MED LIST; NO MEDICATIONS; NORCO 10/325 TA1 TAB PO; NORCO 5/325 TAB1 TAB PO; NORCO 7.5-3251 EACH PO; NORVASC; NOVOLIN 70100 UNITS/; OXYCODONE HCL10 MG PO; OXYCODONE-APAP1 EAC4 PO; PHENERGAN PO; PHENERGAN PR; PHENERGAN SUPP25 MG PR; PHENERGAN25 MG PO; PRAVACHOL20 MG PO; PRAVASTATIN SOD20 MG PO; PRILOSEC; PROTONIX; PROTONIX PO; PROZAC PO; PROZAC10 MG PO; QUETIAPINE FUM400 MG PO; RAMIPRIL5 MG PO; SEROQUEL400 MG PO; SULFAMETHOXAZO1 EAC1 PO; TOPROL XL; ULTRAM PO; VALIUM10 MG PO; VALIUM2 MG PO; VIBRAMYCIN100 M1 PO; VICODIN 5/500 T1 TAB PO; VICTOZA0.6 MG/0.1; VICTOZA0.6 MG/0.1 SQ; ZOFRAN ODT4 MG PO; ZOFRAN8 MG PO; ZYLOPRIM100 MG PO; ZYPREXA ZYDI5 MG/TAB PO; ZYPREXA2.5 MG PO; [UNRECOGNIZED DRUG - OTHER] PO; [UNRECOGNIZED DRUG - REMARK]
[2016-08-24 09:12] LABS: BASOPHIL# 0.1 X10e3 (0-0.3); BASOPHIL% 0.5 % (0-2.5); DIFF IND NO; HEMATOCRIT 35.7 % (38.0-50.0); HEMOGLOBIN 11.5 gm/dL (13.0-16.0); LYMPHOCYTE# 0.7 X10e3 (1.0-3.5); LYMPHOCYTE% 6.2 % (17.0-45.0); MEAN CELL VOLUME 80.9 FL (83-96); MEAN CORPUSCULAR HEMOGLOBIN 26.2 PG (28-34); MEAN CORPUSCULAR HGB CONC 32.3 g/dL (30-36); MEAN PLATELET VOLUME 7.3 FL (6.5-11.5); MONOCYTE# 0.6 X10e3 (0-1.0); MONOCYTE% 5.5 % (3.0-12.0); NEUTROPHIL# 9.9 X10e3 (1.5-7.1); NEUTROPHIL% 87.8 % (40-75); PLATELET COUNT 170 X10e3 (140-420); RED BLOOD COUNT 4.41 X10e (3.90-5.60); WHITE BLOOD COUNT 11.2 X10e3 (4.0-10.5)
[2016-08-24 09:48] LABS: ALBUMIN SERUM 2.6 g/dL (3.5-5.0); BILIRUBIN, DIRECT 0.3 mg/dL (0.0-0.2); BILIRUBIN,INDIRECT 0.8 mg/dL (0.0-0.9); BILIRUBIN,TOTAL 1.1 mg/dL (0.2-2.0); BUN/CREATININE RATIO 8.57; CALCIUM SERUM 8.2 mg/dL (8.4-10.2); CREATININE SERUM 0.7 mg/dL (0.6-1.4); GLOM FILT RATE Estimated 108.5 mL/min (>60); POTASSIUM 3.1 mmol/L (3.5-5.1); PROTEIN TOTAL SERUM 7.8 g/dL (6.0-8.3)
[2016-08-24 10:54] LABS: URINE SOURCE CLEAN CATCH
[2016-08-24 11:09] LABS: URINE APPEARANCE CLEAR; URINE BILIRUBIN NEG (NEG); URINE BLOOD 1+ (NEG); URINE COLOR YELLOW; URINE GLUCOSE >1000 MG/DL (NEG); URINE KETONE 3+ (NEG); URINE LEUKOCYTE ESTERASE NEG (NEG); URINE NITRATE NEG (NEG); URINE PROTEIN TRACE (NEG); URINE SPECIFIC GRAVITY 1.035 (1.003-1.035)
[2016-08-24 11:13] LABS: CULTURE INDICATED? YES; URINE BACTERIA AUWI NEG (NEGATIVE); URINE SQUAMOUS EPITHELIAL CELL NONE SEEN /[HPF]
[2016-08-24 11:43] LABS: URINE MUCUS PRESENT
[2016-08-24] MEDS ORDERED: NO MEDICATIONS (11:43)
[2016-08-25 07:35] LABS: BASOPHIL% 0.2 % (0-2.5); EOSINOPHIL% 0.3 % (0.0-7.0); HEMATOCRIT 35.4 % (38.0-50.0); HEMOGLOBIN 11.3 gm/dL (13.0-16.0); LYMPHOCYTE# 0.8 X10e3 (1.0-3.5); LYMPHOCYTE% 6.7 % (17.0-45.0); MEAN CELL VOLUME 81.3 FL (83-96); MEAN CORPUSCULAR HEMOGLOBIN 25.9 PG (28-34); MEAN CORPUSCULAR HGB CONC 31.9 g/dL (30-36); MEAN PLATELET VOLUME 7.3 FL (6.5-11.5); MONOCYTE# 0.7 X10e3 (0-1.0); MONOCYTE% 6.2 % (3.0-12.0); NEUTROPHIL# 10.4 X10e3 (1.5-7.1); NEUTROPHIL% 86.6 % (40-75); PLATELET COUNT 164 X10e3 (140-420); RED BLOOD COUNT 4.36 X10e (3.90-5.60); RED CELL DISTRIBUTION WIDTH 14.4 % (11.0-15.5); WHITE BLOOD COUNT 12.1 X10e3 (4.0-10.5)
[2016-08-25 07:44] LABS: DIFF IND NO
[2016-08-25 08:09] LABS: BUN/CREATININE RATIO 11.66; CALCIUM SERUM 7.7 mg/dL (8.4-10.2); CREATININE SERUM 0.6 mg/dL (0.6-1.4); GLOM FILT RATE Estimated 115.6 mL/min (>60)
[2016-08-25 08:40] LABS: INR 1.2; PARTIAL THROMBOPLASTIN TIME 28.1 SECONDS (23.5-31.3); PROTHROMBIN TIME (PATIENT) 12.7 SECONDS (10.0-11.7)
[2016-08-26 08:02] LABS: BASOPHIL% 0.2 % (0-2.5); EOSINOPHIL% 0.3 % (0.0-7.0); HEMATOCRIT 31.2 % (38.0-50.0); HEMOGLOBIN 10.1 gm/dL (13.0-16.0); LYMPHOCYTE# 0.5 X10e3 (1.0-3.5); LYMPHOCYTE% 5.6 % (17.0-45.0); MEAN CELL VOLUME 80.3 FL (83-96); MEAN CORPUSCULAR HGB CONC 32.4 g/dL (30-36); MEAN PLATELET VOLUME 7.2 FL (6.5-11.5); MONOCYTE# 0.5 X10e3 (0-1.0); MONOCYTE% 6.2 % (3.0-12.0); NEUTROPHIL# 7.5 X10e3 (1.5-7.1); NEUTROPHIL% 87.7 % (40-75); PLATELET COUNT 130 X10e3 (140-420); RED BLOOD COUNT 3.89 X10e (3.90-5.60); RED CELL DISTRIBUTION WIDTH 14.1 % (11.0-15.5); WHITE BLOOD COUNT 8.5 X10e3 (4.0-10.5)
[2016-08-26 08:09] LABS: DIFF IND NO
[2016-08-26 08:33] LABS: BUN/CREATININE RATIO 11.66; CALCIUM SERUM 7.5 mg/dL (8.4-10.2); CREATININE SERUM 0.6 mg/dL (0.6-1.4); GLOM FILT RATE Estimated 115.6 mL/min (>60); MAGNESIUM 1.7 mg/dL (1.6-3.0); POTASSIUM 3.5 mmol/L (3.5-5.1)
[2016-08-27 05:43] LABS: BASOPHIL% 0.3 % (0-2.5); EOSINOPHIL# 0.1 X10e3 (0-0.7); HEMATOCRIT 31.3 % (38.0-50.0); LYMPHOCYTE# 0.7 X10e3 (1.0-3.5); LYMPHOCYTE% 10.4 % (17.0-45.0); MEAN CELL VOLUME 80.4 FL (83-96); MEAN CORPUSCULAR HEMOGLOBIN 25.8 PG (28-34); MEAN CORPUSCULAR HGB CONC 32.1 g/dL (30-36); MEAN PLATELET VOLUME 7.3 FL (6.5-11.5); MONOCYTE# 0.4 X10e3 (0-1.0); MONOCYTE% 5.2 % (3.0-12.0); NEUTROPHIL# 5.6 X10e3 (1.5-7.1); NEUTROPHIL% 83.1 % (40-75); PLATELET COUNT 147 X10e3 (140-420); RED BLOOD COUNT 3.89 X10e (3.90-5.60); RED CELL DISTRIBUTION WIDTH 14.2 % (11.0-15.5); WHITE BLOOD COUNT 6.7 X10e3 (4.0-10.5)
[2016-08-27 05:47] LABS: DIFF IND NO
[2016-08-27 07:46] LABS: CALCIUM SERUM 7.7 mg/dL (8.4-10.2); CREATININE SERUM 0.6 mg/dL (0.6-1.4); GLOM FILT RATE Estimated 115.6 mL/min (>60); MAGNESIUM 1.9 mg/dL (1.6-3.0); POTASSIUM 3.5 mmol/L (3.5-5.1)
[2016-08-28 05:29] LABS: HEMATOCRIT 29.7 % (38.0-50.0); HEMOGLOBIN 9.6 gm/dL (13.0-16.0); MEAN CELL VOLUME 79.9 FL (83-96); MEAN CORPUSCULAR HGB CONC 32.5 g/dL (30-36); MEAN PLATELET VOLUME 7.1 FL (6.5-11.5); RED BLOOD COUNT 3.71 X10e (3.90-5.60); RED CELL DISTRIBUTION WIDTH 14.2 % (11.0-15.5); WHITE BLOOD COUNT 4.3 X10e3 (4.0-10.5)
[2016-08-28 17:02] LABS: CALCIUM SERUM 7.9 mg/dL (8.4-10.2); CREATININE SERUM 0.6 mg/dL (0.6-1.4); GLOM FILT RATE Estimated 115.6 mL/min (>60); MAGNESIUM 1.9 mg/dL (1.6-3.0); POTASSIUM 3.8 mmol/L (3.5-5.1)
[2016-08-29 07:12] LABS: HEMATOCRIT 30.3 % (38.0-50.0); HEMOGLOBIN 9.8 gm/dL (13.0-16.0); MEAN CELL VOLUME 80.4 FL (83-96); MEAN CORPUSCULAR HEMOGLOBIN 25.9 PG (28-34); MEAN CORPUSCULAR HGB CONC 32.2 g/dL (30-36); MEAN PLATELET VOLUME 6.8 FL (6.5-11.5); RED BLOOD COUNT 3.77 X10e (3.90-5.60); RED CELL DISTRIBUTION WIDTH 14.4 % (11.0-15.5); WHITE BLOOD COUNT 4.3 X10e3 (4.0-10.5)
[2016-08-29 07:50] LABS: CALCIUM SERUM 7.9 mg/dL (8.4-10.2); CREATININE SERUM 0.4 mg/dL (0.6-1.4); GLOM FILT RATE Estimated 136.6 mL/min (>60); POTASSIUM 3.7 mmol/L (3.5-5.1)
[2016-08-30 06:44] LABS: HEMATOCRIT 33.5 % (38.0-50.0); HEMOGLOBIN 10.8 gm/dL (13.0-16.0); MEAN CELL VOLUME 80.7 FL (83-96); MEAN CORPUSCULAR HEMOGLOBIN 25.9 PG (28-34); MEAN CORPUSCULAR HGB CONC 32.1 g/dL (30-36); MEAN PLATELET VOLUME 6.4 FL (6.5-11.5); RED BLOOD COUNT 4.16 X10e (3.90-5.60); RED CELL DISTRIBUTION WIDTH 14.5 % (11.0-15.5); WHITE BLOOD COUNT 4.9 X10e3 (4.0-10.5)
[2016-08-30 10:55] LABS: MAGNESIUM 1.9 mg/dL (1.6-3.0); POTASSIUM 4.1 mmol/L (3.5-5.1)
[2016-08-31 07:27] LABS: BUN/CREATININE RATIO 17.5; CALCIUM SERUM 7.8 mg/dL (8.4-10.2); CREATININE SERUM 0.4 mg/dL (0.6-1.4); GLOM FILT RATE Estimated 136.6 mL/min (>60); MAGNESIUM 1.9 mg/dL (1.6-3.0); POTASSIUM 3.6 mmol/L (3.5-5.1)
[2016-09-01] MEDS ORDERED: ACETAMINOPHEN PO (16:05)
[2016-09-01] MEDS ORDERED: LEVEMIR100 UNITS/ SUBQ ×2 (16:09)
[2016-09-01] MEDS ORDERED: NOVOLOG100 UNITS/ SUBQ (16:11)
[2016-09-01] MEDS ORDERED: LORTAB 10-3251 EACH PO (16:18)
[2016-09-01] MEDS ORDERED: [UNRECOGNIZED DRUG - OTHER] IV (16:18)
[2016-09-19] MEDS ORDERED: PROZAC PO (08:08)
[2016-09-19] MEDS ORDERED: BLOOD PRESSURE (08:09)
[2016-09-19] MEDS ORDERED: PRINIVIL5 MG PO (09:34)
[2016-09-19] MEDS ORDERED: TOPROL XL PO (09:34)
== END 2016-09-01 17:01 | disposition home health service (06) | DRG 853 ==
LOC: CED 08:09 → CEDOF 13:06 → C2A 13:06 → C5B 13:06 → C2A 18:57 → C5B 08-25 21:46
PROVIDERS: Emergency Medicine; Hospitalist; Physician Assistant Medical; Urology
PROC: 0T9130Z Drainage of Left Kidney with Drainage Device, Percutaneous Approach (ICD-10-PCS; principal; 2016-08-25)
PROC: B24BYZZ Ultrasonography of Heart with Aorta using Other Contrast (ICD-10-PCS; 2016-08-27)
PROC: 0TP530Z Removal of Drainage Device from Kidney, Percutaneous Approach (ICD-10-PCS; 2016-08-29)
PROC: 0T9130Z Drainage of Left Kidney with Drainage Device, Percutaneous Approach (ICD-10-PCS; 2016-08-29)
PROC: 02HV33Z Insertion of Infusion Device into Superior Vena Cava, Percutaneous Approach (ICD-10-PCS; 2016-08-31)
PROC: B518YZA Fluoroscopy of Superior Vena Cava using Other Contrast, Guidance (ICD-10-PCS; 2016-08-31)
PROC: B548ZZA Ultrasonography of Superior Vena Cava, Guidance (ICD-10-PCS; 2016-08-31)
DX: A41.9 Sepsis, unspecified organism (principal); N15.1 Renal and perinephric abscess; K31.84 Gastroparesis; I48.91 Unspecified atrial fibrillation; E11.43 Type 2 diabetes mellitus with diabetic autonomic (poly)neuropathy; E11.65 Type 2 diabetes mellitus with hyperglycemia; I10 Essential (primary) hypertension; G40.909 Epilepsy, unspecified, not intractable, without status epilepticus; R50.9 Fever, unspecified; R63.4 Abnormal weight loss; E78.5 Hyperlipidemia, unspecified; Z79.84 Long term (current) use of oral hypoglycemic drugs; B19.20 Unspecified viral hepatitis C without hepatic coma; F41.9 Anxiety disorder, unspecified; F32.9 Major depressive disorder, single episode, unspecified; D72.829 Elevated white blood cell count, unspecified; B95.61 Methicillin susceptible Staphylococcus aureus infection as the cause of diseases classified elsewhere
CPT/HCPCS: 36415; 71010; 74176; 74177; 75984; 76080; 76937; 77001; 77012; 80048; 80076; 80202; 81003; 82947; 83036; 83605; 83735; 84132; 85025; 85027; 85610; 85730; 87040; 87070; 87077; 87086; 87186; 87205; 87493; 93005; 93306; 96361; 96374; 99285; C1729; C1751; J0692; J0696; J1170; J1642; J1650; J1815; J2250; J2270; J2405; J3010; J3370; J3475; Q9967

== ENCOUNTER 2016-09-13 08:04 | Emergency (ER) | payer MEDICARE, OTHER ==
[~2016-09-13] VITALS: Ht 165.1 cm; Wt 74.8 kg
--- NOTE | ~2016-09-13 | CT2 ---
[facility] A Service of [facility] & [facility] RADIOLOGY TEXT RESULTS PATIENT: SOHAIL LUBIN LOCATION: [facility] : 61 UNIT #: [id number] AGE: [address]: Gael Anglin MD SEX: M ORDER DR: [id number] [facility] [address]. [place], [place] [address] [id number] E MR#: [id number] Acc #: [id number] NAME: SOHAIL LUBIN : 1965 SEX: M STUDY DATE/TIME: 09/13/2016 10:08 UNIT: [facility] ROOM: STUDY DESCRIPTION: CT Abd and Pelv W Cont Attending Physician: Gael Anglin M.D. Ordering Physician: Gael Anglin M.D. Primary Care Physician: No Primary Care Physician MEDICAL IMAGING REPORT This report is preliminary unless electronic signature is present EXAM CT abdomen and pelvis with contrast, 09/13/2016, 1008 hours. CLINICAL HISTORY Patient complains of low back pain at drain insertion site in the left flank since yesterday. History of abscess left kidney with catheter placed 08/25/2016. Patient on antibiotics. COMPARISON 08/31/[address] images were obtained from the lung bases through the pubic symphysis with intravenous contrast. Sagittal and coronal reconstructions were performed. Contrast was Isovue-370 100 mL IV. Total exam DLP 6620 mGy-cm. This CT exam was performed with one or more of the following radiation dose reduction techniques: automatic exposure control, adjustment of mA and/or kV according to patient size, and iterative reconstruction. FINDINGS The lung bases are clear and there are no effusions. Images through the abdomen again demonstrate cirrhotic morphology to the liver. The liver, spleen, pancreas are unchanged. There is at least 1 stones seen in the gallbladder without gallbladder wall thickening. There is a overall decrease in the quantity of ascites in the abdomen and pelvis. The pancreas, adrenal glands are normal. The right kidney demonstrates a vague hypodense area in the medial upper pole measuring 1.8 cm, decreased from 2.[address] 08/24/2016. This is likely a resolving area of infection. [facility]. [facility] A Service of [facility] RADIOLOGY TEXT RESULTS PATIENT: SOHAIL LUBIN LOCATION: [facility] : 61 UNIT #: [id number] AGE: [address]: Gael Anglin MD SEX: M ORDER DR: The left kidney demonstrates a cyst in the lateral mid kidney. There is no obstruction. The percutaneous drain in the left perinephric space posterior to the left kidney appears and unchanged in position. There is some residual enhancing granulation type tissue anterior to the pigtail portion measuring 3.1 x 2.4 cm decreased from the most recent contrasted CT of 08/27/2016, where measured 5.0 x 3.4 cm. There is no residual fluid is seen. There is some thickening of the lateroconal fascia and Gerota's fascia unchanged. Stomach, small bowel and colon appear unremarkable. The bladder is normal. Enlarged prostate and prominent seminal vesicles are stable. IMPRESSION 1. The left percutaneous pigtail catheter lying in the perinephric space along the anterior margin of the psoas muscle is unchanged in position from 08/31/2016. There is some residual enhancing granulation type tissue anterior to the pigtail measuring 3.1 x 2.4 cm decreased from the most recent contrasted CT of 08/27/2016 where it measured 5.0 x 3.4 cm. Findings are most consistent with improving abscess. There is no free fluid seen. There is some residual thickening of Gerota's fascia on the lateroconal fascia. 2. Cirrhotic morphology to the liver with decreasing ascites. 3. There is a vague 1.8 cm hypodense area in the medial cortex upper pole right kidney improved from 2.2 cm, on 08/24/2016, most likely an area of improving infection. Attention to this on follow up is recommended. Dictated by... Gris Powell M.D. THIS IS AN ELECTRONICALLY VERIFIED REPORT Gris Powell M.D. at 09/13/2016 6:56 PM Félix TD: 09/13/2016 15:57 JOB #: [id number] MEDICAL IMAGING REPORT Page 1 of 1 COPY
[~2016-09-13 08:04] MED LIST changes: +ACETAMINOPHEN PO; +LORTAB 10-3251 EACH PO; +NOVOLOG100 UNITS/ SUBQ; +[UNRECOGNIZED DRUG - OTHER] IV
[2016-09-13 09:13] LABS: BASOPHIL# 0.1 X10e3 (0-0.3); BASOPHIL% 1.9 % (0-2.5); EOSINOPHIL# 0.1 X10e3 (0-0.7); EOSINOPHIL% 1.8 % (0.0-7.0); HEMOGLOBIN 10.8 gm/dL (13.0-16.0); LYMPHOCYTE# 0.6 X10e3 (1.0-3.5); LYMPHOCYTE% 21.2 % (17.0-45.0); MEAN CELL VOLUME 81.9 FL (83-96); MEAN CORPUSCULAR HEMOGLOBIN 26.7 PG (28-34); MEAN CORPUSCULAR HGB CONC 32.6 g/dL (30-36); MEAN PLATELET VOLUME 6.4 FL (6.5-11.5); MONOCYTE# 0.2 X10e3 (0-1.0); MONOCYTE% 7.5 % (3.0-12.0); NEUTROPHIL% 67.6 % (40-75); PLATELET COUNT 124 X10e3 (140-420); RED BLOOD COUNT 4.03 X10e (3.90-5.60); RED CELL DISTRIBUTION WIDTH 18.4 % (11.0-15.5); WHITE BLOOD COUNT 2.9 X10e3 (4.0-10.5)
[2016-09-13 09:15] LABS: DIFF IND YES
[2016-09-13 09:30] LABS: BILIRUBIN, DIRECT 0.1 mg/dL (0.0-0.2); BILIRUBIN,INDIRECT 1.5 mg/dL (0.0-0.9); BILIRUBIN,TOTAL 1.6 mg/dL (0.2-2.0); CALCIUM SERUM 8.5 mg/dL (8.4-10.2); CREATININE SERUM 0.6 mg/dL (0.6-1.4); GLOM FILT RATE Estimated 115.6 mL/min (>60); POTASSIUM 3.4 mmol/L (3.5-5.1); PROTEIN TOTAL SERUM 7.7 g/dL (6.0-8.3)
[2016-09-13 09:38] LABS: URINE SOURCE CLEAN CATCH
[2016-09-13 09:44] LABS: URINE APPEARANCE CLEAR; URINE BILIRUBIN NEG (NEG); URINE BLOOD NEG (NEG); URINE COLOR YELLOW; URINE GLUCOSE >1000 MG/DL (NEG); URINE KETONE NEG (NEG); URINE LEUKOCYTE ESTERASE NEG (NEG); URINE NITRATE NEG (NEG); URINE PROTEIN NEG (NEG); URINE SPECIFIC GRAVITY 1.025 (1.003-1.035); URINE UROBILINOGEN 0.2 MG/DL (NEG)
[2016-09-13 09:47] LABS: CULTURE INDICATED? NO
[2016-09-13 09:55] LABS: ANISOCYTOSIS SL; HYPOCHROMIA SL; MICROCYTOSIS SL; PLATELET ESTIMATE DECREASED (NORMAL)
[2016-09-19] MEDS ORDERED: PROZAC PO (08:08)
[2016-09-19] MEDS ORDERED: BLOOD PRESSURE (08:09)
[2016-09-19] MEDS ORDERED: TOPROL XL PO (09:34)
[2016-09-19] MEDS ORDERED: PRINIVIL5 MG PO (09:34)
== END 2016-09-13 11:25 | disposition home or self-care (01) ==
LOC: CED 08:04
PROVIDERS: Emergency Medicine
DX: R10.9 Unspecified abdominal pain (principal); D61.818 Other pancytopenia; F15.10 Other stimulant abuse, uncomplicated
CPT/HCPCS: 36415; 74177; 80048; 80076; 81003; 83605; 83690; 85025; 96361; 96374; 99284; J1885; Q9967

== ENCOUNTER 2016-09-18 09:56 | Emergency (ER) | payer MEDICARE, OTHER ==
[~2016-09-18] VITALS: Ht 166.4 cm; Wt 72.6 kg
--- NOTE | ~2016-09-18 | CT4 ---
[facility] A Service of [facility] & [facility] / [facility] RADIOLOGY TEXT RESULTS PATIENT: SOHAIL LUBIN LOCATION: [facility] : 61 UNIT #: [id number] AGE: [address]: Hong Hedrick MD SEX: M ORDER DR: [id number] [facility] [address] [place], [place] [address] [id number] E MR#: [id number] Acc #: [id number] NAME: SOHAIL LUBIN : 1965 SEX: M STUDY DATE/TIME: 09/18/2016 12:13 UNIT: [facility] ROOM: STUDY DESCRIPTION: CT Abd and Pelv Wo Cont Attending Physician: Hong Hedrick M.D. Ordering Physician: Hong Hedrick M.D. Primary Care Physician: Laura Ingram M.D. MEDICAL IMAGING REPORT This report is preliminary unless electronic signature is present EXAM CT abdomen and pelvis without contrast HISTORY Left flank pain for 1 week. Left renal abscess with drain placement [address] abdomen and pelvis was performed without contrast. This CT exam was performed with one or more of the following radiation dose reduction techniques: automatic exposure control, adjustment of mA and/or kV according to patient size, and iterative reconstruction. CT ABDOMEN: Percutaneous drainage catheter remains curled along the posterior margin of the lower pole left kidney, and there is a 1.2 cm x 2 cm intermediate density collection within the adjacent perirenal tissue, abutting the loop of the percutaneous drain, and this previously measured 2.4 cm x 3.1 cm. This could be a residual complex fluid collection. No associated air bubbles. Stable stranding in the adjacent left paracolic gutter and along the left anterior and posterior pararenal fascia. No new fluid collection. Cirrhosis. Small gallstone. Splenomegaly measuring 16 cm in length. No bowel dilatation. There is a 1.5 cm umbilical hernia containing fat. No bowel herniation. The pancreas, right kidney, and adrenal glands are normal. No bowel dilatation. Normal caliber abdominal aorta. CT PELVIS: Normal appendix. No free fluid. Mild prostatic enlargement. Urinary bladder is normal. Mild sigmoid diverticulosis. No diverticulitis. IMPRESSION [facility]. [facility] A Service of [facility] & [facility] / [facility] RADIOLOGY TEXT RESULTS PATIENT: SOHAIL LUBIN LOCATION: [facility] : 61 UNIT #: [id number] AGE: [address]: Hong Hedrick MD SEX: M ORDER DR: Compared to 09/13/2016 there has been a slight interval decrease in the size of the collection along the posterior margin of the lower pole left kidney now measuring 1.2 cm x 2 cm, previously 2.47-0.1 cm. This is intermediate density could be a small residual abscess or hematoma. No new air bubbles or new fluid collections in the abdomen or pelvis. NO cirrhosis with evidence of portal venous hypertension including splenomegaly. Small gallstones. Or mild prostatic enlargement. Dictated by... Suhail Nelson M.D. THIS IS AN ELECTRONICALLY VERIFIED REPORT Suhail Nelson M.D. at 09/19/2016 11:12 PM REVA/vimal TD: 09/19/2016 03:12 JOB #: [id number] MEDICAL IMAGING REPORT Page 1 of 1 COPY
[2016-09-18 11:59] LABS: BASOPHIL% 1.5 % (0-2.5); EOSINOPHIL% 1.4 % (0.0-7.0); HEMATOCRIT 33.6 % (38.0-50.0); LYMPHOCYTE# 0.5 X10e3 (1.0-3.5); MEAN CELL VOLUME 82.5 FL (83-96); MEAN CORPUSCULAR HEMOGLOBIN 26.9 PG (28-34); MEAN CORPUSCULAR HGB CONC 32.6 g/dL (30-36); MEAN PLATELET VOLUME 6.7 FL (6.5-11.5); MONOCYTE# 0.2 X10e3 (0-1.0); MONOCYTE% 10.4 % (3.0-12.0); NEUTROPHIL# 1.3 X10e3 (1.5-7.1); NEUTROPHIL% 63.7 % (40-75); RED BLOOD COUNT 4.08 X10e (3.90-5.60); RED CELL DISTRIBUTION WIDTH 19.5 % (11.0-15.5)
[2016-09-18 12:13] LABS: DIFF IND YES; PLATELET COUNT 99 X10e3 (140-420)
[2016-09-18 12:18] LABS: PLATELET ESTIMATE DECREASED (NORMAL)
[2016-09-18 12:19] LABS: ANISOCYTOSIS MOD
[2016-09-18 12:27] LABS: CALCIUM SERUM 8.4 mg/dL (8.4-10.2); CREATININE SERUM 0.6 mg/dL (0.6-1.4); GLOM FILT RATE Estimated 115.6 mL/min (>60)
[2016-09-19] MEDS ORDERED: PROZAC PO (08:08)
[2016-09-19] MEDS ORDERED: BLOOD PRESSURE (08:09)
[2016-09-19] MEDS ORDERED: TOPROL XL PO (09:34)
[2016-09-19] MEDS ORDERED: PRINIVIL5 MG PO (09:34)
== END 2016-09-18 15:55 | disposition home or self-care (01) ==
LOC: CED 09:56
PROVIDERS: Emergency Medicine
DX: R10.9 Unspecified abdominal pain (principal); E11.65 Type 2 diabetes mellitus with hyperglycemia; E87.6 Hypokalemia; I10 Essential (primary) hypertension; Z79.4 Long term (current) use of insulin; Z79.899 Other long term (current) drug therapy
CPT/HCPCS: 74176; 80048; 82947; 85025; 96374; 96376; 99284; J2270

== ENCOUNTER → 2016-09-19 | Outpatient (CLI) | payer MEDICARE, OTHER ==
[~2016-09-19] VITALS: Ht 167.6 cm; Wt 75.9 kg
[~2016-09-19] MED LIST changes: +BLOOD PRESSURE; +PRINIVIL5 MG PO; +TOPROL XL PO
--- NOTE | ~2016-09-19 | XA226 ---
[facility] A Service of [facility] & [facility] / [facility] RADIOLOGY TEXT RESULTS PATIENT: SOHAIL LUBIN LOCATION: [facility] : 61 UNIT #: [id number] AGE: [address]: Hong Hedrick MD SEX: M ORDER DR: [id number] [facility] [address]. [place], [place] [address] [id number] O MR#: [id number] Acc #: [id number] NAME: SOHAIL LUBIN : 1965 SEX: M STUDY DATE/TIME: 09/19/2016 11:22 UNIT: [facility] ROOM: STUDY DESCRIPTION: GEOFF Mccord EXAM NC Attending Physician: Hong Hedrick M.D. Ordering Physician: Shorty Young M.D. Primary Care Physician: Laura Ingram M.D. MEDICAL IMAGING REPORT This report is preliminary unless electronic signature is present EXAM Abscess tube removal. CLINICAL HISTORY Left perinephric abscess. Leakage with flushing. FINDINGS Inspection of the tube reveals the tube is cracked at the connection between the catheter and lower lock. Contrast injection revealed no residual cavity. The catheter was initially replaced over a guidewire under standard sterile conditions after local anesthesia, but even then there is no residual cavity identifiable with rejection and the catheter was removed. IMPRESSION 1. Attempted catheter replacement reveals no residual abscess cavity and the catheter was ultimately removed after attempted replacement. 2. Total fluoro time 3 minutes, single spot image preserved. Dictated by... Chriss Smalls M.D. THIS IS AN ELECTRONICALLY VERIFIED REPORT Chriss Smalls M.D. at 09/23/2016 4:52 PM RAYMON/pao TD: 09/20/2016 12:13 JOB #: [id number] MEDICAL IMAGING REPORT Page 1 of 1 COPY
[2016-09-19 08:19] LABS: PARTIAL THROMBOPLASTIN TIME 25.2 SECONDS (23.5-31.3); PROTHROMBIN TIME (PATIENT) 11.3 SECONDS (10.0-11.7)
== END | disposition home or self-care (01) ==
LOC: CIVR 07:24
PROVIDERS: Emergency Medicine
DX: T83.032A Leakage of nephrostomy catheter, initial encounter (principal); N15.1 Renal and perinephric abscess; J44.9 Chronic obstructive pulmonary disease, unspecified
CPT/HCPCS: 36415; 76000; 76080; 85610; 85730; 99152; 99153; J2250; J3010; Q9967

== ENCOUNTER 2016-10-03 17:24 | Emergency (ER) | payer MEDICARE, OTHER ==
[~2016-10-03] VITALS: Ht 165.1 cm; Wt 74.8 kg
[2016-10-03 18:48] LABS: BASOPHIL% 1.4 % (0-2.5); EOSINOPHIL% 1.6 % (0.0-7.0); HEMATOCRIT 33.8 % (38.0-50.0); HEMOGLOBIN 11.2 gm/dL (13.0-16.0); LYMPHOCYTE# 0.6 X10e3 (1.0-3.5); LYMPHOCYTE% 21.7 % (17.0-45.0); MEAN CELL VOLUME 84.1 FL (83-96); MEAN CORPUSCULAR HGB CONC 33.3 g/dL (30-36); MEAN PLATELET VOLUME 7.1 FL (6.5-11.5); MONOCYTE# 0.2 X10e3 (0-1.0); MONOCYTE% 8.6 % (3.0-12.0); NEUTROPHIL# 1.9 X10e3 (1.5-7.1); NEUTROPHIL% 66.7 % (40-75); PLATELET COUNT 115 X10e3 (140-420); RED BLOOD COUNT 4.02 X10e (3.90-5.60); WHITE BLOOD COUNT 2.8 X10e3 (4.0-10.5)
[2016-10-03 18:53] LABS: DIFF IND YES
[2016-10-03 19:05] LABS: ALBUMIN SERUM 3.6 g/dL (3.5-5.0); BILIRUBIN, DIRECT 0.3 mg/dL (0.0-0.2); BILIRUBIN,INDIRECT 1.6 mg/dL (0.0-0.9); BILIRUBIN,TOTAL 1.9 mg/dL (0.2-2.0); BUN/CREATININE RATIO 11.42; CALCIUM SERUM 9.4 mg/dL (8.4-10.2); CREATININE SERUM 0.7 mg/dL (0.6-1.4); GLOM FILT RATE Estimated 108.5 mL/min (>60); POTASSIUM 4.2 mmol/L (3.5-5.1); PROTEIN TOTAL SERUM 8.1 g/dL (6.0-8.3)
[2016-10-03 19:06] LABS: ANISOCYTOSIS MOD; PLATELET ESTIMATE NORMAL (NORMAL)
== END 2016-10-03 20:26 | disposition left against medical advice (07) ==
LOC: CED 17:24
DX: Z53.21 Procedure and treatment not carried out due to patient leaving prior to being seen by health care provider (principal)
CPT/HCPCS: 80048; 80076; 83690; 85025